=== PATIENT | male | born 1995 | race Caucasian/White ===

== ENCOUNTER 2020-10-31 19:43 | Emergency (ER) | payer BC, OTHER ==
[~2020-10-31] VITALS: Ht 185.5 cm; Wt 99.8 kg
[2020-10-31] MEDS ORDERED: KETOROLAC 60 MG/2 ML VIAL IM ONE (20:30)
[2020-10-31] MEDS ORDERED: HYDROcodone/APAP 5 MG/325 MG (LORTAB) TAB PO ONE (20:30)
[2020-10-31] MEDS ORDERED: TETRACAINE 0.5% OPHTH SOLN 4 ML BTL (SINGLE DOSE ONLY) OP ONE (20:30)
--- NOTE | 2020-10-31 20:58 | ED EENT ---
History of Present Illness General Chief Complaint: Eye Problems Stated Complaint: LEFT EYE INJ Nursing Triage Note: PT AMBULATE TO ROOM FS02 WITH C/O FLASH CATES BILAT EYES. PT REPORTS PAIN TO LEFT EYE IS WORSE THAN RIGHT. PT REPORTS FLASH CATES RELATED TO WELDING. 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 Patient states he swelling for several hours today without wearing his helmet and had indirect exposure to welding torch. Patient has had flash cates before. He reports burning intense pain burning and tearing to both eyes left greater than right. No foreign body sensation or exposure. No other symptoms or complaints. Pain not relieved with qmid-hcz-dowrujv medications. Timing/Duration: gradual Location: eye (R), eye (L) Prearrival Treatment: other Modifying Factors: Improves With Other Associated Symptoms: other Allergies and Home Medications Allergies Coded Allergies: Penicillins (Verified Allergy, Unknown, 10/31/20) amoxicillin (Verified Allergy, Unknown, 10/31/20) Patient Home Medication List Home Medication List Reviewed: Yes Review of Systems Review of Systems Constitutional: see HPI Eyes: See HPI Ears: See HPI Past Scdcjkz-Htnbhl-Smhngq Hx Patient Social History Tobacco Use?: Yes Tobacco type used: Cigarettes Smoking Status: Current Everyday Smoker Substance use?: No Alcohol Use?: Yes Alcohol Frequency: Daily Physical Exam Vital Signs Vital Signs - First Documented 10/31/20 20:08 Temp 36.9 Pulse 96 Resp 19 B/P (MAP) 155/65 (95) O2 Delivery Room Air Height, Weight, BMI Height: '" Weight: lbs. oz. kg; 29.00 BMI Method: General Appearance: WD/WN, moderate distress Eyes: bilateral eye PERRL, bilateral eye conjunctival inflammation, bilateral eye other (Tearing) Nose: normal inspection Skin: other (Erythema to face consistent with light/heat exposure) Progress/Results/Core Measures Results/Orders My Orders Orders - MONIQUE BRAVO DO Ketorolac Injection (Toradol Injection) (10/31/20 20:30) Hydrocodone/Apap 5/325 Tablet (Lortab 5 (10/31/20 20:30) Tetracaine 0.5% Ophth Christie Sdv (Tetracai (10/31/20 20:30) Medications Given in ED Current Medications Medications Dose Ordered Sig/Beverly Route Start Time Stop Time Status Last Admin Dose Admin Acetaminophen/ Hydrocodone Bitart 1 ea ONCE ONCE PO 10/31/20 20:30 10/31/20 20:31 DC 10/31/20 20:31 1 EA Ketorolac Tromethamine 60 mg ONCE ONCE IM 10/31/20 20:30 10/31/20 20:31 DC 10/31/20 20:31 60 MG Tetracaine HCl 2 ml ONCE ONCE OP 10/31/20 20:30 10/31/20 20:31 DC 10/31/20 20:32 2 ML Vital Signs/I&O 10/31/20 20:08 Temp 36.9 Pulse 96 Resp 19 B/P (MAP) 155/65 (95) O2 Delivery Room Air Blood Pressure Mean: 95 Departure Communication (Admissions) Toradol, hydrocodone topical tetracaine given for pain relief. Visual acuity intact. Exam consistent with B keratoconjunctivitis secondary to flash cates. Will treat supportively with ophthalmology follow-up. Return precautions reviewed. Patient verbalizes understanding agreement discharge instructions prior to departure. Impression Primary Impression: Keratoconjunctivitis of both eyes Disposition: HOME, SELF-CARE Condition: Stable Departure-Patient Inst. Decision time for Depature: 20:57 Referrals: HUEY KHANNA MD (PCP/Family) Primary Care Physician Patient Instructions: Conjunctivitis (Noninfectious [place]key[place]) Add. Discharge Instructions: Please continue ibuprofen for pain, and take hydrocodone as needed for additional relief. Fill topical antibiotics and take as directed. Follow-up with engineer conductor in 1 to 2 days for reevaluation. Do not attempt to drive pain medication or while symptomatic. Return to the ED if new or worsening symptoms. All discharge instructions reviewed with patient and/or family. Voiced understanding. Scripts Sulfacetamide Sodium (Bleph-10) 5 Ml Drops 5 ML OU Q4H, #3 DROPS Prov: MONIQUE BRAVO DO 10/31/20 MONIQUE BRAVO DO Oct 31, 2020 20:58
[2020-10-31] MEDS ORDERED: SULF5DRO OU (21:07)
[2020-10-31 21:20] VITALS: BP 134/72
== END 2020-10-31 21:20 | disposition home or self-care (01) ==
LOC: EDUNIT# 19:43 → ER FS 19:45
DX: H16.203 Unspecified keratoconjunctivitis, bilateral (principal); F17.210 Nicotine dependence, cigarettes, uncomplicated
CPT/HCPCS: 99284

== ENCOUNTER 2021-07-11 23:07 | Emergency (ER) | payer BC ==
[~2021-07-11] VITALS: Ht 183 cm; Wt 108.0 kg
[~2021-07-11 23:07] MED LIST: SULF5DRO OU
[2021-07-11 23:15] VITALS: BP 136/109
--- NOTE | 2021-07-11 23:27 | ED GI ---
General Stated Complaint: GI BLEED Source of Information: Patient Exam Limitations: No Limitations History of Present Illness Date Seen by Provider: Jul 11, 2021 Time Seen by Provider: 23:15 Initial Comments Patient to ER by private conveyance from home with his significant other chief complaint he has been having 1 day of nausea vomiting diarrhea and a fever of 100.4. No known sick contacts. Unable to keep any fluids down. Had some dark brown/black blood-tinged emesis today. He is known to have had ulcer when he was in high school but denies having endoscopy. Last intake was about 2:00 in the afternoon. He feels weak and tired. No rash. No antiacids or pain medicines. In the past he was on several rounds of antacids and sucralfate but has been off them for months. Allergies and Home Medications Allergies Coded Allergies: Penicillins (Verified Allergy, Unknown, 10/31/20) amoxicillin (Verified Allergy, Unknown, 10/31/20) Patient Home Medication List Home Medication List Reviewed: Yes Sulfacetamide Sodium (Bleph-10) 5 Ml Drops, 5 ML OU Q4H Prescribed by: MONIQUE BRAVO on 10/31/202106 Review of Systems Review of Systems Constitutional: No chills, No diaphoresis EENTM: No Blurred Vision, No Double Vision Respiratory: Denies Cough, Denies Shortness of Air Cardiovascular: Denies Chest Pain, Denies Lightheadedness Gastrointestinal: See HPI; Denies Abdomen Distended; Abdominal Pain; Denies Constipated; Diarrhea, Nausea, Poor Appetite, Poor Fluid Intake, Vomiting Genitourinary: Denies Burning, Denies Discharge Musculoskeletal: No back pain, No joint pain All Other Systems Reviewed Negative Unless Noted: Yes Past Fuyhadz-Kieqdp-Vyyixp Hx Patient Social History Tobacco Use?: Yes Tobacco type used: Cigarettes Smoking Status: Current Everyday Smoker (Pack per day) Use of E-Cig and/or Vaping dev: No Substance use?: No Alcohol Use?: Yes Alcohol Frequency: Once in a while Physical Exam Vital Signs Vital Signs - First Documented 07/11/21 23:15 Temp 37.4 Pulse 123 Resp 20 B/P (MAP) 136/109 (118) Pulse Ox 96 O2 Delivery Room Air Capillary Refill : Height/Weight/BMI Height: '" Weight: lbs. oz. kg; 29.00 BMI Method: General Appearance: WD/WN, no apparent distress HEENT: PERRL/EOMI; No pharynx normal (Dry oral mucosa with erythematous retropharynx) Neck: full range of motion, normal inspection Respiratory: lungs clear, normal breath sounds, no respiratory distress, no accessory muscle use Cardiovascular: normal peripheral pulses, regular rate, rhythm, no edema, tachycardia (110) Gastrointestinal: normal bowel sounds, non tender, soft Neurologic/Psychiatric: alert, normal mood/affect, oriented x 3 Skin: normal color, warm/dry Progress/Results/Core Measures Results/Orders Lab Results Laboratory Tests Test 07/11/21 23:25 07/11/21 23:29 Range/Units White Blood Count 9.0 4.3-11.0 10^3/uL Red Blood Count 5.71 H 4.30-5.52 10^6/uL Hemoglobin 17.5 13.3-17.7 g/dL Hematocrit 51 40-54 % Mean Corpuscular Volume 88 80-99 fL Mean Corpuscular Hemoglobin 31 25-34 pg Mean Corpuscular Hemoglobin Concent 35 32-36 g/dL Red Cell Distribution Width 12.2 10.0-14.5 % Platelet Count 219 130-400 10^3/uL Mean Platelet Volume 10.4 9.0-12.2 fL Immature Granulocyte % (Auto) 0 % Neutrophils (%) (Auto) 88 H 42-75 % Lymphocytes (%) (Auto) 6 L 12-44 % Monocytes (%) (Auto) 5 0-12 % Eosinophils (%) (Auto) 1 0-10 % Basophils (%) (Auto) 0 0-10 % Neutrophils # (Auto) 8.0 H 1.8-7.8 10^3/uL Lymphocytes # (Auto) 0.5 L 1.0-4.0 10^3/uL Monocytes # (Auto) 0.4 0.0-1.0 10^3/uL Eosinophils # (Auto) 0.1 0.0-0.3 10^3/uL Basophils # (Auto) 0.0 0.0-0.1 10^3/uL Immature Granulocyte # (Auto) 0.0 0.0-0.1 10^3/uL Sodium Level 139 135-145 MMOL/L Potassium Level 4.3 3.6-5.0 MMOL/L Chloride Level 102 98-107 MMOL/L Carbon Dioxide Level 20 L 21-32 MMOL/L Anion Gap 17 H 5-14 MMOL/L Blood Urea Nitrogen 20 H 7-18 MG/DL Creatinine 1.13 0.60-1.30 MG/DL Estimat Glomerular Filtration Rate 94 BUN/Creatinine Ratio 18 Glucose Level 105 70-105 MG/DL Calcium Level 9.5 8.5-10.1 MG/DL Corrected Calcium 8.5-10.1 MG/DL Magnesium Level 1.7 1.6-2.4 MG/DL Total Bilirubin 1.1 H 0.1-1.0 MG/DL Aspartate Amino Transf (AST/SGOT) 16 5-34 U/L Alanine Aminotransferase (ALT/SGPT) 19 0-55 U/L Alkaline Phosphatase 87 40-136 U/L C-Reactive Protein High Sensitivity 1.62 H 0.00-0.50 MG/DL Total Protein 7.9 6.4-8.2 GM/DL Albumin 4.6 H 3.2-4.5 GM/DL Lipase 21 8-78 U/L Influenza Type A (RT-PCR) Not Detected Not Detecte Influenza Type B (RT-PCR) Not Detected Not Detecte SARS-CoV-2 RNA (RT-PCR) Not Detected Not Detecte My Orders Orders - SHAHEED JAMES Ondansetron Injection (Zofran Injectio (07/11/21 23:30) Pantoprazole Injection (Protonix Injecti (07/11/21 23:30) Ed Iv/Invasive Line Start (07/11/21 23:22) Lactated Ringers (Lr 1000 Ml Iv Solution (07/11/21 23:30) Cbc With Automated Diff (07/11/21 23:22) Comprehensive Metabolic Panel (07/11/21 23:22) Hs C Reactive Protein (07/11/21 23:22) Lipase (07/11/21 23:22) Magnesium (07/11/21 23:22) Influenza A And B By Pcr (07/11/21 23:22) Covid 19 Inhouse Test (07/11/21 23:22) Medications Given in ED Current Medications Medications Dose Ordered Sig/Beverly Route Start Time Stop Time Status Last Admin Dose Admin Lactated Ringer's 1,000 ml @ 0 mls/hr Q0M ONCE IV 07/11/21 23:30 07/11/21 23:31 DC 07/11/21 23:38 1,000 MLS/HR Ondansetron HCl 8 mg ONCE ONCE IVP 07/11/21 23:30 07/11/21 23:31 DC 07/11/21 23:43 8 MG Pantoprazole 40 mg ONCE ONCE IV 07/11/21 23:30 07/11/21 23:31 DC 07/11/21 23:40 40 MG Vital Signs/I&O 07/11/21 23:15 Temp 37.4 Pulse 123 Resp 20 B/P (MAP) 136/109 (118) Pulse Ox 96 O2 Delivery Room Air Progress Progress Note : Time: 00:29 Progress Note After some fluids and nausea medicine as well as a PPI the patient is feeling much better. We will send him home with some nausea medicine and a referral to Dr. MCCLAIN for general surgery to consider endoscopy if his GERD symptoms persist. Departure Impression Primary Impression: Gastroenteritis and colitis, viral Additional Impressions: GERD (gastroesophageal reflux disease) Qualified Codes: K21.9 - Gastro-esophageal reflux disease without esophagitis Hematemesis Qualified Codes: K92.0 - Hematemesis Disposition: 01 HOME, SELF-CARE Condition: Stable Departure-Patient Inst. Decision time for Depature: 00:30 Referrals: HUEY KHANNA MD (PCP) Primary Care Physician ANGÉLICA MCCLAIN MD Patient Instructions: Viral Gastroenteritis, Adult (DC), Diarrhea, Adult ED Add. Discharge Instructions: Drink plenty of fluids. I recommend Gatorade and Powerade. Zofran 1 tablet every 6 hours as needed for nausea or vomiting. Pantoprazole or omeprazole daily to reduce the acid in your stomach. You can use Tums, Maalox, Mylanta or Gaviscon as necessary for burning pain. Simethicone/Gas-X as necessary for cramping pain. Tylenol and Motrin as necessary for pain. Imodium/loperamide 2 tablets for diarrhea followed by 1 tablet every 4 hours afterwards that you are still having loose, watery stools. Return to the ER for intractable vomiting, dehydration or other worrisome symptoms. Follow-up with your primary care doctor if your diarrhea does not stop in 10 days. If you continue to have symptoms of indigestion, reflux and GERD then call Dr. MCCLAIN, general surgery and request follow-up appointment. Scripts Pantoprazole Sodium (Pantoprazole Sodium) 20 Mg Tablet.dr 20 MG PO BID, #60 TAB 0 Refills Prov: SHAHEED JAMES 07/12/21 Ondansetron (Ondansetron Odt) 4 Mg Tab.rapdis 4 MG PO Q6H PRN for NAUSEA/VOMITING, #12 TAB 0 Refills Prov: SHAHEED JAMES 07/12/21 Work/School Note: Work Release Form Date Seen in the Emergency Department: Jul 12, 2021 Return to Work: Jul 15, 2021 Restrictions: No Restrictions Copy Copies To 1: ANGÉLICA MCCLAIN MD, TITUS J Jul 11, 2021 23:27
[2021-07-11] MEDS ORDERED: LACTATED RINGERS 1,000 ML IV ONE (23:30)
[2021-07-11] MEDS ORDERED: ONDANSETRON 4 MG/2 ML (SDV) Z0FRAN IVP ONE (23:30)
[2021-07-11] MEDS ORDERED: PANTOPRAZOLE 40 MG (PROTONIX) VIAL IV ONE (23:30)
[2021-07-11 23:34] LABS: BASOPHILS % (AUTO) 0 % (0-10); EOSINOPHILS # (AUTO) 0.1 10^3/uL (0.0-0.3); EOSINOPHILS % (AUTO) 1 % (0-10); HEMATOCRIT 51 % (40-54); HEMOGLOBIN 17.5 g/dL (13.3-17.7); LYMPHOCYTES # (AUTO) 0.5 10^3/uL (1.0-4.0); LYMPHOCYTES % (AUTO) 6 % (12-44); MEAN CORPUSCULAR HEMOGLOBIN 31 pg (25-34); MEAN CORPUSCULAR HGB CONC 35 g/dL (32-36); MEAN CORPUSCULAR VOLUME 88 fL (80-99); MEAN PLATELET VOLUME 10.4 fL (9.0-12.2); MONOCYTES # (AUTO) 0.4 10^3/uL (0.0-1.0); MONOCYTES % (AUTO) 5 % (0-12); NEUTROPHILS % (AUTO) 88 % (42-75); PLATELET COUNT 219 10^3/uL (130-400)
[2021-07-11 23:46] LABS: ALBUMIN 4.6 GM/DL (3.2-4.5); POTASSIUM 4.3 MMOL/L (3.6-5.0)
[2021-07-11 23:47] LABS: CHLORIDE 102 MMOL/L (98-107); SODIUM 139 MMOL/L (135-145)
[2021-07-11 23:48] LABS: CALCIUM 9.5 MG/DL (8.5-10.1)
[2021-07-11 23:49] LABS: GLUCOSE 105 MG/DL (70-105); TOTAL PROTEIN 7.9 GM/DL (6.4-8.2)
[2021-07-11 23:50] LABS: CARBON DIOXIDE 20 MMOL/L (21-32)
[2021-07-11 23:51] LABS: BILIRUBIN,TOTAL 1.1 MG/DL (0.1-1.0)
[2021-07-11 23:52] LABS: ALKALINE PHOSPHATASE 87 U/L (40-136)
[2021-07-11 23:53] LABS: CREATININE SERUM 1.13 MG/DL (0.60-1.30); GFR ESTIMATED 94
[2021-07-11 23:54] LABS: BUN/CREATININE RATIO 18
[2021-07-11 23:55] LABS: ALANINE AMINOTRANSFERASE 19 U/L (0-55); MAGNESIUM 1.7 MG/DL (1.6-2.4)
[2021-07-11 23:56] LABS: LIPASE 21 U/L (8-78)
[2021-07-12] MEDS ORDERED: ONDA4TAB11 PO (00:34)
[2021-07-12] MEDS ORDERED: PANT20TA18 PO (00:34)
== END 2021-07-12 00:53 | disposition home or self-care (01) ==
LOC: ER 23:07
DX: A08.4 Viral intestinal infection, unspecified (principal); K21.9 Gastro-esophageal reflux disease without esophagitis; K92.0 Hematemesis; F17.210 Nicotine dependence, cigarettes, uncomplicated; Z20.822 Contact with and (suspected) exposure to COVID-19
CPT/HCPCS: 36415; 80053; 83690; 83735; 85025; 86141; 87636